=== PATIENT | male | born 1955 | race Caucasian/White ===

== ENCOUNTER 2017-10-13 14:15 | Emergency (ER) | payer MEDICAID, OTHER ==
[~2017-10-13] VITALS: Ht 172.7 cm; Wt 80.0 kg
[~2017-10-13 14:15] MED LIST: HTN MEDS
[2017-10-13] MEDS ORDERED: ASPI-1159 PO (14:26)
[2017-10-13] MEDS ORDERED: BENA1TAB21 PO (14:26)
[2017-10-13] MEDS ORDERED: ACETAMINOPHEN WITH CODEINE 300/30MG TABLET PO STA (14:41)
[2017-10-13] MEDS ORDERED: CLONIDINE 0.1MG TABLET PO ONE (14:45)
[2017-10-13 16:52] LABS: HEMOGLOBIN. 14.3 g/dL (14.0-18.0); LYMPHOCYTES % 20.7 % (20.0-50.0); MEAN CORPUSCULAR HEMOGLOBIN 31.5 pg (28.0-32.0); MEAN CORPUSCULAR VOLUME 92.5 fL (80.0-94.0); MEAN PLATELET VOLUME 9.8 fl (7.4-10.4); MONOCYTES % 6.1 % (2.0-8.0); NEUTROPHILS % 69.2 % (40.0-76.0); PLATELET 177 x1000/uL (130-400); RED BLOOD CELL COUNT 4.55 mill/uL (4.7-6.1); RED CELL DISTRIBUTION WIDTH 13.1 % (11.6-14.6)
[2017-10-13 17:07] LABS: CHLORIDE 110 mEq/L (98-107)
[2017-10-13 18:09] VITALS: BP 160/103
== END 2017-10-13 18:10 | disposition home or self-care (01) ==
LOC: ER 14:15
DX: I16.0 Hypertensive urgency (principal)
CPT/HCPCS: 36415; 70450; 80053; 85025; 93005; 99285

== ENCOUNTER 2023-07-28 09:52 | Emergency (ER) | payer OTHER ==
[~2023-07-28] VITALS: Ht 182.9 cm; Wt 90.0 kg
[~2023-07-28 09:52] MED LIST changes: +ASPI-1497 PO; +BENA1TAB21 PO
[2023-07-28 10:04] VITALS: TEMP 98.5; O2SAT 98
[2023-07-28 10:19] LABS: CLARITY URINE CLEAR (CLEAR); COLOR URINE ORANGE (YELLOW); GLUCOSE URINE NEGATIVE (NEGATIVE); KETONES URINE NEGATIVE (NEGATIVE); LEUKOCYTE ESTERASE URINE 1+ (NEGATIVE); NITRITE URINE NEGATIVE (NEGATIVE); OCCULT BLOOD URINE 3+ (NEGATIVE); PROTEIN URINE 2+ (NEGATIVE); SPECIFIC GRAVITY URINE 1.022 (1.005-1.030)
[2023-07-28 10:40] LABS: BACTERIA URINE 2+; RBC URINE 15-25 /hpf (0-2); SQUAMOUS EPITHELIAL CELL URINE NONE SEEN /lpf (RARE/1+); YEAST URINE NONE SEEN
[2023-07-28] MEDS: ACETAMINOPHEN 325MG TABLET PO ONE (11:30)
[2023-07-28] MEDS: IBUPROFEN 600MG TABLET PO ONE (13:57)
[2023-07-28] MEDS ORDERED: CEFP200T13 MT (14:08)
[2023-07-28 14:27] VITALS: BP 137/80; PULSE 63; RESP 14
== END 2023-07-28 14:29 | disposition home or self-care (01) ==
LOC: ER 10:21
DX: R51.9 Headache, unspecified (principal); N39.0 Urinary tract infection, site not specified; F12.10 Cannabis abuse, uncomplicated; I10 Essential (primary) hypertension; Z79.82 Long term (current) use of aspirin
CPT/HCPCS: 74176; 81003; 87077; 87186; 99284